=== PATIENT | female | born 1970 | race Caucasian/White ===

== ENCOUNTER 2020-11-10 21:30 | Emergency (ER) | payer OTHER ==
[2020-11-10 21:42] VITALS: BP 132/93; PULSE 80; TEMP 98.6; BMI 35.3
== END 2020-11-11 00:30 | disposition home or self-care (01) ==
LOC: FER 21:30
DX: S92.501A Displaced unspecified fracture of right lesser toe(s), initial encounter for closed fracture (principal)
CPT/HCPCS: 73660-TC-FY; 99283-25